=== PATIENT | male | born 1960 | race Caucasian/White ===

== ENCOUNTER → 2016-04-09 | Outpatient (CLI) | payer BC ==
[~2016-04-09] MED LIST: CHOL100040 PO; HYDR-4079 PO; LOSA50TA6 PO; MELO15TA4 PO; METO-217 PO; OMEP20CA9 PO
[2016-04-09 11:08] LABS: HEMATOCRIT 44.6 % (42-52); MEAN CELL VOLUME 84.8 fL (80-100); MEAN CORPUSCULAR HEMOGLOBIN 31.2 pg (25-34); MEAN CORPUSCULAR HGB CONC 36.8 g/dl (32-36); MEAN PLATELET VOLUME 11.2 fL (7.4-10.4); PLATELET COUNT 199 K/uL (130-400); RED BLOOD COUNT 5.26 M/uL (4.7-6.1)
[2016-04-09 11:17] LABS: ALT/SGPT 25 U/L (12-78); BLOOD UREA NITROGEN 16 mg/dl (7-18); BUN/CREATININE RATIO 16.4 (10-20); CALCIUM 9.5 mg/dl (8.5-10.1); CARBON DIOXIDE 27 mmol/L (21-32); CHLORIDE 105 mmol/L (98-107); CHOLESTEROL 218 mg/dl (0-200); CREATININE 0.99 mg/dl (0.60-1.40); GLUCOSE 93 mg/dl (70-99); POTASSIUM 3.8 mmol/L (3.5-5.1); SODIUM 140 mmol/L (136-145); TRIGLYCERIDES 130 mg/dl (0-150); VERY LOW DENSITY LIPOPROT CALC 26 mg/dl
[2016-04-09 11:21] LABS: ALKALINE PHOSPHATASE 57 U/L (45-117); AST/SGOT 23 U/L (15-37); CHOLESTEROL/HDL RATIO 3.3; HDL CHOLESTEROL 67 mg/dl; LDL CHOLESTEROL CALCULATED 125 mg/dl
[2016-04-09 11:22] LABS: ESTIMATED AVERAGE GLUCOSE 85 mg/dl; HA1C FLAG Normal (Normal)
== END | disposition home or self-care (01) ==
LOC: C.LAB1850 09:42
PROVIDERS: ATTEND Family Medicine
DX: I10 Essential (primary) hypertension (principal); E78.5 Hyperlipidemia, unspecified; Z13.1 Encounter for screening for diabetes mellitus

== ENCOUNTER → 2017-05-27 | Outpatient (CLI) | payer BC ==
[~2017-05-27] MED LIST changes: +MELO-84 PO; -MELO15TA4 PO
[2017-05-27 14:52] LABS: ALBUMIN 3.5 gm/dl (3.4-5.0); ALT/SGPT 21 U/L (12-78); AST/SGOT 17 U/L (15-37); BLOOD UREA NITROGEN 25 mg/dl (7-18); CALCIUM 9.6 mg/dl (8.5-10.1); CARBON DIOXIDE 25 mmol/L (21-32); CREATININE 0.98 mg/dl (0.60-1.40); GLUCOSE 88 mg/dl (70-99); POTASSIUM 3.8 mmol/L (3.5-5.1); SODIUM 140 mmol/L (136-145)
[2017-05-27 14:53] LABS: ALKALINE PHOSPHATASE 56 U/L (45-117); CHOLESTEROL 222 mg/dl (0-200); LDL CHOLESTEROL CALCULATED 119 mg/dl
== END | disposition home or self-care (01) ==
LOC: C.LABPBG 07:26
PROVIDERS: ATTEND Family Medicine
DX: I10 Essential (primary) hypertension (principal); E78.5 Hyperlipidemia, unspecified